=== PATIENT | male | born 1980 | race Caucasian/White ===

== ENCOUNTER → 2017-03-12 | Outpatient (CLI) | payer OTHER | LOC: MHCPAIN 09:36 | DX: G89.29 Other chronic pain (principal); M47.817 Spondylosis without myelopathy or radiculopathy, lumbosacral region; M54.16 Radiculopathy, lumbar region | CPT/HCPCS: G0463 ==

== ENCOUNTER → 2017-03-18 | Outpatient (CLI) | payer OTHER | LOC: MHCPAIN 07:37 | DX: M41.06 Infantile idiopathic scoliosis, lumbar region (principal); M51.27 Other intervertebral disc displacement, lumbosacral region | CPT/HCPCS: J1100; Q9967 ==

== ENCOUNTER → 2017-04-16 | Outpatient (CLI) | payer OTHER | LOC: MHCPAIN 09:44 | DX: G89.29 Other chronic pain (principal); M47.817 Spondylosis without myelopathy or radiculopathy, lumbosacral region; M54.16 Radiculopathy, lumbar region | CPT/HCPCS: G0463 ==

== ENCOUNTER → 2017-04-22 | Outpatient (CLI) | payer OTHER | LOC: MHCPAIN 12:03 | DX: M47.817 Spondylosis without myelopathy or radiculopathy, lumbosacral region (principal) | CPT/HCPCS: J1100; Q9967 ==

== ENCOUNTER → 2017-05-25 | Outpatient (CLI) | payer OTHER | LOC: MHCPAIN 08:52 | DX: G89.29 Other chronic pain (principal); M47.27 Other spondylosis with radiculopathy, lumbosacral region; F17.200 Nicotine dependence, unspecified, uncomplicated | CPT/HCPCS: G0463 ==

== ENCOUNTER → 2017-06-03 | Outpatient (CLI) | payer OTHER | LOC: MHCPAIN 08:15 | DX: M47.817 Spondylosis without myelopathy or radiculopathy, lumbosacral region (principal) ==

== ENCOUNTER → 2017-06-21 | Outpatient (CLI) | payer OTHER | LOC: MHCPAIN 08:46 | DX: G89.29 Other chronic pain (principal); M47.27 Other spondylosis with radiculopathy, lumbosacral region; M53.3 Sacrococcygeal disorders, not elsewhere classified; F17.200 Nicotine dependence, unspecified, uncomplicated | CPT/HCPCS: G0463 ==

== ENCOUNTER 2017-09-08 13:14 | Day surgery (SDC) | payer OTHER ==
[~2017-09-08] VITALS: Ht 188 cm; Wt 132.5 kg
[2017-09-08] VITALS (7 sets, daily range): BP systolic 128–143; BP diastolic 72–84; PULSE 53–69; TEMP 97.7–97.8
[2017-09-08] MEDS ORDERED: MOTRIN 800800 MG/TAB PO (14:45)
[2017-09-08] MEDS ORDERED: PAMELOR 25MG25 MG PO (14:46)
[2017-09-08] MEDS ORDERED: NEURONTIN300 MG/CAP PO (14:46)
[2017-09-08] MEDS ORDERED: MULTIPLE VITAMI1 TA5 PO (14:47)
[2017-09-08] MEDS ORDERED: FLONASEALLERGY NS (14:47)
[2017-09-08] MEDS ORDERED: ZANTAC 150MG T150 MG PO (14:48)
[2017-09-08] MEDS ORDERED: ZYRTEC 10MG10 MG PO (14:48)
== END 2017-09-08 19:41 | disposition home or self-care (01) ==
LOC: SDCO 13:14 → SURG 17:25 → SDCO 19:41
DX: N30.20 Other chronic cystitis without hematuria (principal); J45.909 Unspecified asthma, uncomplicated; F17.200 Nicotine dependence, unspecified, uncomplicated; Z83.3 Family history of diabetes mellitus; Z82.49 Family history of ischemic heart disease and other diseases of the circulatory system; Z84.1 Family history of disorders of kidney and ureter
CPT/HCPCS: OP; J0690; J1100; J2405; J2704; J3010; J7120

== ENCOUNTER → 2017-10-06 | Outpatient (CLI) | payer OTHER ==
[~2017-10-06] MED LIST: FLONASEALLERGY NS; MOTRIN 800800 MG/TAB PO; MULTIPLE VITAMI1 TA5 PO; NEURONTIN300 MG/CAP PO; PAMELOR 25MG25 MG PO; ZANTAC 150MG T150 MG PO; ZYRTEC 10MG10 MG PO
== END ==
LOC: MHCPAIN 09:56
DX: G89.29 Other chronic pain (principal); M47.27 Other spondylosis with radiculopathy, lumbosacral region; M53.3 Sacrococcygeal disorders, not elsewhere classified; F17.200 Nicotine dependence, unspecified, uncomplicated
CPT/HCPCS: G0463

== ENCOUNTER 2017-10-19 07:30 | Observation (INO) | payer OTHER ==
[~2017-10-19] VITALS: Ht 188 cm; Wt 136.0 kg
[2017-12-21] VITALS (13 sets, daily range): BP systolic 114–165; BP diastolic 58–89; PULSE 46–96; TEMP 97.5–99.3
[2017-12-22 01:18] VITALS: BP 150/68; PULSE 57; TEMP 98.5
[2017-12-22 04:37] VITALS: BP 135/64; PULSE 65; TEMP 98.1
[2017-12-22 06:15] LABS: BASO % 0.4 % (0.0-2.0); EOS # 0.1 (0.0-0.7); EOS % 0.6 % (0-4.0); GRAN # 6.3 (1.4-6.5); GRAN % 64.5 % (42.2-75.2); HEMATOCRIT 38.7 % (42.0-52.0); HEMOGLOBIN 13.3 g/dl (13.5-18.0); LYMPH # 2.5 (1.2-3.4); LYMPH % 25.6 % (20.0-51.0); MEAN CELL VOLUME 91 fl (80.0-100.0); MEAN CORPUSCULAR HEMOGLOBIN 31 pg (27.0-31.0); MEAN CORPUSCULAR HGB CONC 34 g/dl (33.0-37.0); MEAN PLATELET VOLUME 8.9 fl (7.4-10.4); MONO # 0.8 (0.1-0.6); MONO % 8.6 % (1.7-9.3); PLATELET COUNT 183 K/mm3 (130-400); RED BLOOD COUNT 4.25 M/mm3 (4.20-5.60); REDCELL DISTRIBUTION WIDTH-CV 12.3 % (11.5-14.5)
[2017-12-22 09:16] VITALS: BP 135/65; PULSE 68; TEMP 97.6
== END 2017-12-22 13:28 | disposition home or self-care (01) ==
LOC: SURG 07:30 → INPTSU 12-21 05:33 → SURG 12-21 05:33 → INPTSU 12-21 05:33 → SURG 12-21 07:30 → INPTSU 12-21 09:36 → SURG 12-21 10:45
PROVIDERS: Urology
DX: N32.9 Bladder disorder, unspecified (principal); Z86.19 Personal history of other infectious and parasitic diseases; F17.210 Nicotine dependence, cigarettes, uncomplicated
CPT/HCPCS: A4314; G0378; J0690; J1100; J1650; J1885; J2175; J2405; J2704; J2710; J3010; J7120